=== PATIENT | female | born 1995 | race Caucasian/White ===

== ENCOUNTER 2017-05-28 14:18 | Emergency (ER) | payer OTHER ==
[2017-05-28 14:18] VITALS: BMI 25.9
[2017-05-28 14:47] VITALS: BP 143/92; PULSE 91; RESP 20; TEMP 98.6; O2SAT 99
--- NOTE | 2017-05-28 16:02 | C.PDOC ---
History Of Present Illness 21 y/o female presents to the ER complaining of ear fullness in the right ear, sore throat, and acid reflux which has been present for the past 10 days. Patient states that she had her flu shot. Patient denies having headache,cough, fever, chills, nausea, vomiting, and diarrhea. HPI: Influenza Time Seen by Provider: 05/28/17 15:26 Chief Complaint: ENT Problem History Per: Patient Exam Limitations: no limitations Onset/Duration Of Symptoms: Days Symptoms include: sore throat. denies: fever, headache, cough, vomiting, diarrhea Past Medical History Reviewed: Historical Data, Nursing Documentation, Vital Signs Vital Signs: Last Vital Signs Temp 98.6 F 05/28/17 14:44 Pulse 91 H 05/28/17 14:44 Resp 20 05/28/17 14:44 BP 143/92 H 05/28/17 14:44 Pulse Ox 99 05/28/17 14:44 - Medical History PMH: No Chronic Diseases Surgical History: No Surg Hx - [facility] APPLICATION OF SPLINT (05/17/14) Family History: States: No Known Family Hx - Social History Hx Tobacco Use: No Hx Alcohol Use: No Hx Substance Use: Yes - Immunization History Hx Tetanus Toxoid Vaccination: No Hx Influenza Vaccination: No Hx Pneumococcal Vaccination: No Review Of Systems Except As Marked, All Systems Reviewed And Found Negative. Constitutional: Negative for: Fever, Chills ENT: Positive for: Throat Pain, Other (right ear fullness) Gastrointestinal: Negative for: Nausea, Vomiting, Diarrhea Physical Exam - Physical Exam Appears: Non-toxic, No Acute Distress Skin: Normal Color, Warm Head: Atraumatic, Normacephalic Eye(s): bilateral: Normal Inspection Ear(s): Right: Other (fluid behind TM, no erythema) Nose: Normal Oral Mucosa: Moist Neck: Supple Chest: Symmetrical Extremity: Normal ROM Neurological/Psych: Oriented x3, Normal Speech, Normal Motor, Normal Sensation - ECG O2 Sat by Pulse Oximetry: 99 Disposition Counseled Patient/Family Regarding: Diagnosis, Need For Followup, Rx Given - Disposition Disposition: HOME/ ROUTINE Disposition Time: 16:44 Condition: STABLE Prescriptions: Ibuprofen [Motrin] 600 mg PO TID #15 tab Oseltamivir [Tamiflu] 1 cap PO BID #10 cap Prednisone [Deltasone] 60 mg PO DAILY #12 tablet Instructions: Flu, Adult (DC) Forms: [facility] (K[place]akh) - POA Present On Arrival: None - Clinical Impression Clinical Impression: Influenza - Scribe Statement The provider has reviewed the documentation as recorded by the Scribe Boby Jones Provider Attestation: All medical record entries made by the Scribe were at my direction and personally dictated by me. I have reviewed the chart and agree that the record accurately reflects my personal performance of the history, physical exam, medical decision making, and the department course for this patient. I have also personally directed, reviewed, and agree with the discharge instructions and disposition.
== END 2017-05-28 16:56 | disposition home or self-care (01) ==
LOC: C.ER 14:18
DX: J11.1 Influenza due to unidentified influenza virus with other respiratory manifestations (principal)